=== PATIENT | male | born 1940 | race Caucasian/White ===

== ENCOUNTER 2019-08-12 17:33 | Emergency (ER) | payer OTHER ==
[~2019-08-12] VITALS: Ht 180.3 cm; Wt 89.5 kg
[~2019-08-12 17:33] MED LIST: ASPI-817 PO; ATOR40TA68 PO; CLOP75TA19 PO; LISI2.5T59 PO; METO-448 PO; TAMS-14 PO
[2019-08-12 17:42] VITALS: Ht 180.3 cm; Wt 89.5 kg
[2019-08-12] MEDS ORDERED: SOD CHLORIDE 0.9% 500 ML IV STA (17:59)
[2019-08-12 20:14] VITALS: BP 138/67; PULSE 72; RESP 19
== END 2019-08-12 20:14 | disposition home or self-care (01) ==
LOC: E/R 17:33
DX: G45.9 Transient cerebral ischemic attack, unspecified (principal); I10 Essential (primary) hypertension; Z79.82 Long term (current) use of aspirin
CPT/HCPCS: 36415; 70450; 71045; 80053; 83690; 84484; 85025; 93005; 99285; J7040